=== PATIENT | female | born 1945 | race Caucasian/White ===

== ENCOUNTER 2018-01-23 03:37 | Observation (INO) | payer MEDICARE, OTHER ==
[~2018-01-23] VITALS: Ht 160 cm; Wt 90.3 kg
[2018-01-23] VITALS (10 sets, daily range): BP systolic 118–145; BP diastolic 78–90; PULSE 74–103; RESP 16–24; TEMP 95.9–97.6; O2SAT 94–99
[~2018-01-23 03:37] MED LIST: METO50CR PO; WARF-60 PO
[2018-01-23] MEDS ORDERED: WARF-23 PO (04:06)
[2018-01-23] MEDS ORDERED: WARF-21 PO (04:06)
[2018-01-23] MEDS ORDERED: METO1TAB9 PO (04:06)
[2018-01-23] MEDS ORDERED: SODIUM CHLORIDE 0.9% FLUSH 10 ML FLUSH IVF PRN (04:15)
[2018-01-23] MEDS ORDERED: methylPREDNISolone SOD SUCC 125 MG/2 ML VIAL IV PUSH ONE (04:15)
[2018-01-23] MEDS: RESP: ALBUTEROL 2.5 MG/IPRATROPIUM 0.5 MG NEB (SCH) INH ×2 (04:16→04:17)
--- NOTE | 2018-01-23 04:23 | PD ---
HPI Chief Complaint: Respiratory Symptoms Time Seen by Provider: 03:57 Travel History International Travel<30 days: No Contact w/Intl Traveler<30days: No Traveled to known affect area: No History of Present Illness HPI The patient is a 72-year-old female who complains of a nonproductive cough for 7 days. The cough is persistent. She denies any fever, nausea or vomiting. She has never smoked. She was exposed to asbestos, her father of asbestosis and, when she did the laundry, her father's clothes were covered with asbestos dust. She is slightly short of breath. The patient has right sided sharp, pleuritic chest pain which is a 4/10. She has a history of chronic atrial fibrillation. PFSH Past Medical History Hx Anticoagulant Therapy: Yes (COUMADIN) Arthritis: No Asthma: No Atrial Fibrillation: Yes Autoimmune Disease: No Blood Disorders: No Anxiety: No Depression: No Heart Rhythm Problems: Yes (ATRIAL FIB) Cancer: Yes ( lung, ovarian, kidney) Cardiovascular Problems: Yes (A-FIB) High Cholesterol: Yes Chemotherapy: Yes (1989) Chest Pain: No Congestive Heart Failure: No COPD: No Cerebrovascular Accident: Yes Diabetes: No Dialysis: Yes (PERITONEAL ) Diminished Hearing: No Endocrine: No Gastrointestinal Disorders: Yes GERD: No Glaucoma: No Genitourinary: Yes Headaches: Yes Hepatitis: No Hiatal Hernia: No Hypertension: Yes Immune Disorder: No Implanted Vascular Access Dvce: No Kidney Stones: No Musculoskeletal: Yes (FIBROMYALGIA) Neurologic: Yes Psychiatric: No Reproductive: Yes (ovarian cancer, complete hysto) Respiratory: Yes (left lung cancer) Migraines: No Myocardial Infarction: No Radiation Therapy: Yes Renal Failure: Yes Seizures: Yes (2 IN MAY 2010) Sickle Cell Disease: No Sleep Apnea: No Thyroid Disease: No Ulcer: No ?: Not Menopausal: Yes Past Surgical History Abdominal Surgery: Yes (APPENDECTOMY) AICD: No Appendectomy: Yes Arteriovenous Shunt: No Cardiac Surgery: No Section: Yes (x2) Cholecystectomy: No Ear Surgery: No Endocrine Surgery: Yes (left adrenal and left kidney removal) Eye Surgery: Yes (LASER SURGER- TORN RETINA) Genitourinary Surgery: No Gynecologic Surgery: Yes (HYSTERECTOMY, 2 C SECTIONS) Hysterectomy: Yes Insulin Pump: No Joint Replacement: No Neurologic Surgery: No Oral Surgery: No Pacemaker: No Thoracic Surgery: Yes (2/3 LEFT LUNG REMOVED) Other Surgery: Yes Social History Alcohol Use: No Tobacco Use: No Substance Use: No Allergies-Medications (Allergen,Severity, Reaction): Coded Allergies: latex (Verified Allergy, Severe, Rash, 01/23/18) phenytoin (Verified Allergy, Severe, itching, 01/23/18) sevelamer (Verified Allergy, Severe, RASH, 01/23/18) Reported Meds & Prescriptions Reported Meds & Active Scripts Active Reported Warfarin 5 Mg Tab 5 Mg PO DIRECTED Warfarin 7.5 Mg Tab 7.5 Mg PO DIRECTED Metoprolol Succinate ER 24 HR (Metoprolol Succinate) 50 Mg Tab 50 Mg PO BID Review of Systems Except as stated in HPI: all other systems reviewed are Neg Physical Exam Narrative GENERAL: The patient is alert, oriented 3 in slight respiratory distress. Her vital signs show respirations of 24, blood pressure 133/87 and oximetry 94% but the rest of the vital signs are normal. SKIN: Focused skin assessment warm/dry. HEAD: Atraumatic. Normocephalic. EYES: Pupils equal and round. No scleral icterus. No injection or drainage. ENT: No nasal bleeding or discharge. Mucous membranes pink and moist. NECK: Trachea midline. No JVD. CARDIOVASCULAR: Regular rate and rhythm. No murmur appreciated. RESPIRATORY: No accessory muscle use. There are rhonchi and rare wheezes on expiration present heard bilaterally.. Breath sounds equal bilaterally. GASTROINTESTINAL: Abdomen soft, non-tender, nondistended. Hepatic and splenic margins not palpable. MUSCULOSKELETAL: No obvious deformities. No clubbing. No cyanosis. No edema. NEUROLOGICAL: Awake and alert. No obvious cranial nerve deficits. Motor grossly within normal limits. Normal speech. PSYCHIATRIC: Appropriate mood and affect; insight and judgment normal. Data Data Last Documented VS Vital Signs Date Time Temp Pulse Resp B/P (MAP) Pulse Ox O2 Delivery O2 Flow Rate FiO2 01/23/18 05:37 74 20 136/79 (98) 95 Room Air 01/23/18 03:44 97.6 Orders Orders Electrocardiogram (01/23/18 04:05) Complete Blood Count With Diff (01/23/18 04:05) Comprehensive Metabolic Panel (01/23/18 04:05) Influenzae A/B Antigen (01/23/18 04:05) Arterial Blood Gas (Abg) (01/23/18 04:05) Sodium Chloride 0.9% Flush (Ns Flush) (01/23/18 04:15) Chest, Pa & Lat (01/23/18 04:05) B-Type Natriuretic Peptide (01/23/18 04:08) Methylprednisolone So Succ Inj (Solumedr (01/23/18 04:15) Albuterol-Ipratropium Neb (Duoneb Neb) (01/23/18 04:15) Prothrombin Time / Inr (Pt) (01/23/18 04:24) Guaifen-Cod 200-20 Mg/10ml Liq (Robituss (01/23/18 05:30) Labs Laboratory Tests Test 01/23/18 04:00 01/23/18 04:22 White Blood Count 7.3 TH/MM3 Red Blood Count 5.21 MIL/MM3 Hemoglobin 14.7 GM/DL Hematocrit 44.4 % Mean Corpuscular Volume 85.3 FL Mean Corpuscular Hemoglobin 28.2 PG Mean Corpuscular Hemoglobin Concent 33.0 % Red Cell Distribution Width 13.6 % Platelet Count 280 TH/MM3 Mean Platelet Volume 8.6 FL Neutrophils (%) (Auto) 55.4 % Lymphocytes (%) (Auto) 21.5 % Monocytes (%) (Auto) 17.6 % Eosinophils (%) (Auto) 3.2 % Basophils (%) (Auto) 2.3 % Neutrophils # (Auto) 4.0 TH/MM3 Lymphocytes # (Auto) 1.6 TH/MM3 Monocytes # (Auto) 1.3 TH/MM3 Eosinophils # (Auto) 0.2 TH/MM3 Basophils # (Auto) 0.2 TH/MM3 CBC Comment DIFF FINAL Differential Comment Prothrombin Time 19.7 SEC Prothromb Time International Ratio 1.9 RATIO Blood Urea Nitrogen 41 MG/DL Creatinine 2.70 MG/DL Random Glucose 99 MG/DL Total Protein 7.9 GM/DL Albumin 3.2 GM/DL Calcium Level 9.2 MG/DL Alkaline Phosphatase 81 U/L Aspartate Amino Transf (AST/SGOT) 28 U/L Alanine Aminotransferase (ALT/SGPT) 19 U/L Total Bilirubin 0.4 MG/DL Sodium Level 134 MEQ/L Potassium Level 4.7 MEQ/L Chloride Level 104 MEQ/L Carbon Dioxide Level 20.5 MEQ/L Anion Gap 10 MEQ/L Estimat Glomerular Filtration Rate 17 ML/MIN B-Type Natriuretic Peptide 98 PG/ML Blood Gas Puncture Site LT RADIAL Blood Gas Patient Temperature 98.6 Blood Gas HCO3 19 mmol/L Blood Gas Base Excess -6.5 mmol/L Blood Gas Oxygen Saturation 95 % Arterial Blood pH 7.32 Arterial Blood Partial Pressure CO2 38 mmHG Arterial Blood Partial Pressure O2 92 mmHG Arterial Blood Oxygen Content 19.5 Vol % Arterial Blood Carboxyhemoglobin 1.3 % Arterial Blood Methemoglobin 1.3 % Blood Gas Hemoglobin 14.6 G/DL Oxygen Delivery Device ROOM AIR Blood Gas Inspired Oxygen 21 % MDM Medical Decision Making Medical Screen Exam Complete: Yes Emergency Medical Condition: Yes Medical Record Reviewed: Yes Interpretation(s) The complete metabolic profile shows a BUN of 41, creatinine 2.7, GFR of 17 with albumin 3.2 and bicarb 20.5 the anion gap is normal at 10. The blood gases show a metabolic acidosis with pH 7.32, CO2 38, PO2 92 with O2 sat 95%. The influenza A/B antigen is negative for flu a and flu B antigen. The CBC is normal. The EKG shows atrial fibrillation with a rate of [address] elevation or depression. The BNP is normal at 98. The chest x-ray shows no acute disease. Differential Diagnosis Pneumonia, pneumothorax, pleurisy, bronchitis, hypoxemia, pleural effusion, congestive heart failure, electrolyte disorder, asbestosis Narrative Course The patient did get some relief with the DuoNeb treatments. When I go in the room I can hear some wheezing on the other side of the room from this patient. Her oximetry runs 92%. If she breathes faster it will will improve to 94%. The patient has not gotten better and states she is getting worse in the last week. At this 0.23 hour observation with DuoNeb treatments and evaluation possibly by pulmonary may be in order. Diagnosis Primary Impression: Bronchitis Admitting Information Admitting Physician Requests: Observation Willis Wheeler MD Jan 23, 2018 04:23
[2018-01-23 04:41] LABS: BASOPHIL # 0.2 TH/MM3 (0-0.2); BASOPHIL % 2.3 % (0.0-2.0); EOSINOPHIL # 0.2 TH/MM3 (0-0.4); EOSINOPHIL % 3.2 % (0.0-4.0); HEMATOCRIT 44.4 % (35.0-46.0); HEMOGLOBIN 14.7 GM/DL (11.6-15.3); LYMPH % 21.5 % (9.0-44.0); LYMPHOCYTE # 1.6 TH/MM3 (1.0-4.8); MEAN CELL VOLUME 85.3 FL (80.0-100.0); MEAN CORPUSCULAR HEMOGLOBIN 28.2 PG (27.0-34.0); MEAN PLATELET VOLUME 8.6 FL (7.0-11.0); MONO % 17.6 % (0.0-8.0); MONOCYTE # 1.3 TH/MM3 (0-0.9); NEUT % 55.4 % (16.0-70.0); PLATELET COUNT 280 TH/MM3 (150-450); RED BLOOD COUNT 5.21 MIL/MM3 (4.00-5.30); RED CELL DISTRIBUTION WIDTH 13.6 % (11.6-17.2); WHITE BLOOD COUNT 7.3 TH/MM3 (4.0-11.0)
[2018-01-23 04:48] LABS: CHLORIDE 104 MEQ/L (98-107); SODIUM (NA) 134 MEQ/L (136-145)
[2018-01-23 04:51] LABS: CALCIUM 9.2 MG/DL (8.5-10.1); INTERNATIONAL NORMALIZED RATIO 1.9 RATIO; PROTHROMBIN TIME - PATIENT 19.7 SEC (9.8-11.6)
[2018-01-23 04:52] LABS: ALBUMIN 3.2 GM/DL (3.4-5.0); BICARBONATE 20.5 MEQ/L (21.0-32.0); BLOOD UREA NITROGEN 41 MG/DL (7-18); GLUCOSE,RANDOM 99 MG/DL (74-106)
[2018-01-23 04:55] LABS: ALT (GPT) 19 U/L (10-53); AST (GOT) 28 U/L (15-37); GLOMERULAR FILTRATION RATE 17 ML/MIN (>89)
[2018-01-23 04:56] LABS: TOTAL BILIRUBIN ADULT 0.4 MG/DL (0.2-1.0); TOTAL PROTEIN 7.9 GM/DL (6.4-8.2)
[2018-01-23 04:58] LABS: ALKALINE PHOSPHATASE 81 U/L (45-117)
[2018-01-23] MEDS ORDERED: guaiFENesin/CODEINE SYRUP 200 MG/20 MG/10 ML CUP PO ONE (05:30)
--- NOTE | 2018-01-23 06:08 | RADRPT ---
EXAM DATE/TIME: 01/23/2018 04:16 [facility] COMPARISON: CHEST SINGLE AP, August 10, 2011, 18:31. CHEST PA & LAT, June 08, 2010, 16:57. INDICATIONS : Cough and short of breath. MEDICAL HISTORY : None. SURGICAL HISTORY : Left upper lobectomy. ENCOUNTER: Initial ACUITY: 1 day PAIN SCORE: 0/10 LOCATION: Bilateral chest FINDINGS: PA and lateral views of the chest demonstrate the lungs to be symmetrically aerated without evidence of mass, infiltrate or effusion. The cardiomediastinal contours are unremarkable. Cardiomegaly. Oss eous structures are intact. CONCLUSION: No acute disease. Brendan López MD on January 23, 2018 at 6:06 Board Certified Radiologist. This report was verified electronically.
[2018-01-23] MEDS ORDERED: NALOXONE HCL 0.4 MG/ML AMP IV PUSH PRN (06:15)
[2018-01-23] MEDS ORDERED: ACETAMINOPHEN 325 MG TAB PO PRN (06:15)
[2018-01-23] MEDS ORDERED: SENNOSIDES 8.6 MG TAB PO PRN (06:15)
[2018-01-23] MEDS ORDERED: BISACODYL 10 MG SUPP RECTAL PRN (06:15)
[2018-01-23] MEDS ORDERED: RESP: ALBUTEROL 2.5 MG/IPRATROPIUM 0.5 MG NEB (PRN) NEB (06:15)
[2018-01-23] MEDS ORDERED: LACTULOSE SYRUP 20 GM/30 ML CUP PO PRN (06:15)
[2018-01-23] MEDS ORDERED: ONDANSETRON HCL 4 MG/2 ML VIAL IVP PRN (06:15)
[2018-01-23] MEDS ORDERED: SODIUM CHLORIDE 0.9% FLUSH 10 ML FLUSH IV FLUSH PRN (06:15)
[2018-01-23] MEDS ORDERED: MAGNESIUM HYDROXIDE SUSP 30 ML CUP PO PRN (06:15)
[2018-01-23] MEDS ORDERED: HEPARIN SODIUM - SQ 10,000 UNITS/ML VIAL SQ SCH (06:15)
[2018-01-23] MEDS: HEPARIN SODIUM - SQ 10,000 UNITS/ML VIAL SQ SCH ×2 (07:54→20:38)
[2018-01-23] MEDS: SODIUM CHLORIDE 0.9% FLUSH 10 ML FLUSH IV FLUSH SCH ×2 (09:00→20:38)
[2018-01-23] MEDS: DOCUSATE SODIUM 50 MG/SENNA 8.6 MG TAB PO SCH ×2 (09:00→20:37)
--- NOTE | 2018-01-23 09:58 | HHI.HP ---
HPI Service [facility] Primary Care Physician Waqas Johnson MD Admission Diagnosis Bronchitis, chronic atrial fibrillation Diagnoses: Chief Complaint: Shortness of breath Travel History International Travel<30 Days: No Contact w/Intl Traveler <30 Da: No Traveled to Known Affected Are: No History of Present Illness 72-year-old white female admitted for shortness of breath Patient was in her usual state of health until about 5 days ago when she began experiencing a sore throat followed by a cough followed by progressive shortness of breath. Patient reports that her shortness of breath became persistent, no alleviating or exacerbating factors. Denies any fevers or chills. Denies any nausea vomiting. Reports chest pain only with coughing and deep breathing. Was originally going to go to her primary care doctor today but felt too poor to do so therefore came to the emergency room. Emergency room she had a chest x-ray done which I independently reviewed which shows no acute infiltrates or disease. Blood work showed an acute on chronic kidney injury. Social history is remarkable for no smoking. Past medical history significant for stage IV kidney disease and A. fib. Family history significant for father having asbestosis, mesothelioma, throat cancer, mother having diabetes. Review of Systems Except as stated in HPI: all other systems reviewed are Neg Past Family Social History Allergies: Coded Allergies: latex (Verified Allergy, Severe, Rash, 01/23/18) phenytoin (Verified Allergy, Severe, itching, 01/23/18) sevelamer (Verified Allergy, Severe, RASH, 01/23/18) Physical Exam Vital Signs Vital Signs Date Time Temp Pulse Resp B/P (MAP) Pulse Ox O2 Delivery O2 Flow Rate FiO2 01/23/18 09:00 96.2 90 20 140/90 (107) 97 01/23/18 08:24 01/23/18 07:19 20 95 Nasal Cannula 2.00 01/23/18 07:09 83 20 118/78 (91) 95 Nasal Cannula 2.00 01/23/18 06:20 97 21 01/23/18 05:37 74 20 136/79 (98) 95 Room Air 01/23/18 04:08 69 22 97 Room Air 01/23/18 03:44 97.6 77 24 133/87 (102 94 Physical Exam VS: afebrile GENERAL: Lying in bed sleeping comfortably, easily woken, no acute distress SKIN: Warm and dry. EYES: No scleral icterus. No injection or drainage. ENT: No nasal bleeding or discharge. Mucous membranes pink and moist. Slightly hyperemic oropharynx CARDIOVASCULAR: Regular rate and rhythm. no murmurs RESPIRATORY: No accessory muscle use. Diffuse scattered rhonchi and rails with no wheezing, minimally labored breathing, has a very audible wet cough with no productive sputum just yet GASTROINTESTINAL: Abdomen soft, non-tender, nondistended. Extremities: No clubbing, cyanosis, or edema. No obvious deformities. MUSCULOSKELETAL: adequate muscle bulk and tone for age and habitus NEUROLOGICAL: Awake and alert. No obvious cranial nerve deficits. No facial droop nor slurred speech noted. PSYCHIATRIC: Appropriate mood and affect; insight and judgment normal. Laboratory Laboratory Tests Test 01/23/18 04:00 01/23/18 04:22 White Blood Count 7.3 Red Blood Count 5.21 Hemoglobin 14.7 Hematocrit 44.4 Mean Corpuscular Volume 85.3 Mean Corpuscular Hemoglobin 28.2 Mean Corpuscular Hemoglobin Concent 33.0 Red Cell Distribution Width 13.6 Platelet Count 280 Mean Platelet Volume 8.6 Neutrophils (%) (Auto) 55.4 Lymphocytes (%) (Auto) 21.5 Monocytes (%) (Auto) 17.6 Eosinophils (%) (Auto) 3.2 Basophils (%) (Auto) 2.3 Neutrophils # (Auto) 4.0 Lymphocytes # (Auto) 1.6 Monocytes # (Auto) 1.3 Eosinophils # (Auto) 0.2 Basophils # (Auto) 0.2 CBC Comment DIFF FINAL Differential Comment Prothrombin Time 19.7 Prothromb Time International Ratio 1.9 Blood Urea Nitrogen 41 Creatinine 2.70 Random Glucose 99 Total Protein 7.9 Albumin 3.2 Calcium Level 9.2 Alkaline Phosphatase 81 Aspartate Amino Transf (AST/SGOT) 28 Alanine Aminotransferase (ALT/SGPT) 19 Total Bilirubin 0.4 Sodium Level 134 Potassium Level 4.7 Chloride Level 104 Carbon Dioxide Level 20.5 Anion Gap 10 Estimat Glomerular Filtration Rate 17 B-Type Natriuretic Peptide 98 Blood Gas Puncture Site LT RADIAL Blood Gas Patient Temperature 98.6 Blood Gas HCO3 19 Blood Gas Base Excess -6.5 Blood Gas Oxygen Saturation 95 Arterial Blood pH 7.32 Arterial Blood Partial Pressure CO2 38 Arterial Blood Partial Pressure O2 92 Arterial Blood Oxygen Content 19.5 Arterial Blood Carboxyhemoglobin 1.3 Arterial Blood Methemoglobin 1.3 Blood Gas Hemoglobin 14.6 Oxygen Delivery Device ROOM AIR Blood Gas Inspired Oxygen 21 Date/Time Source Procedure Growth Status 01/23/18 04:00 Nasal Washing Influenza Types A,B Antigen (MANDY) - Final NEGATIVE FOR FLU A AND B ANTIGEN.... Complete Result Diagram: 01/23/1839901/23/18399 Caprini VTE Risk Assessment Caprini VTE Risk Assessment: Mod/High Risk (score >= 2) Caprini Risk Assessment Model Point Value = 1 Point Value = 2 Point Value = 3 Point Value = 5 Age 41-60 Minor surgery BMI > 25 kg/m2 Swollen legs Varicose veins or History of unexplained or recurrent spontaneous Oral contraceptives or hormone replacement Sepsis (< 1 month) Serious lung disease, including pneumonia (< 1 month) Abnormal pulmonary function Acute myocardial infarction Congestive heart failure (< 1 month) History of inflammatory bowel disease Medical patient at bed rest Age 61-74 Arthroscopic surgery Major open surgery (> 45 min) Laparoscopic surgery (> 45 min) Malignancy Confined to bed (> 72 hours) Immobilizing plaster cast Central venous access Age >= 75 History of VTE Family history of VTE Factor V Leiden Prothrombin [id number] Lupus anticoagulant Anticardiolipin antibodies Elevated serum homocysteine Heparin-induced thrombocytopenia Other congenital or acquired thrombophilia Stroke (< 1 month) Elective arthroplasty Hip, pelvis, or leg fracture Acute spinal cord injury (< 1 month) Prophylaxis Regimen Total Risk Factor Score Risk Level Prophylaxis Regimen 0-1 Low Early ambulation 2 Moderate Order ONE of the following: *Sequential Compression Device (SCD) *Heparin 5000 units SQ BID 3-4 Higher Order ONE of the following medications: *Heparin 5000 units SQ TID *Enoxaparin/Lovenox 40 mg SQ daily (WT < 150 kg, CrCl > 30 mL/min) *Enoxaparin/Lovenox 30 mg SQ daily (WT < 150 kg, CrCl > 10-29 mL/min) *Enoxaparin/Lovenox 30 mg SQ BID (WT < 150 kg, CrCl > 30 mL/min) AND/OR *Sequential Compression Device (SCD) 5 or more Highest Order ONE of the following medications: *Heparin 5000 units SQ TID (Preferred with Epidurals) *Enoxaparin/Lovenox 40 mg SQ daily (WT < 150 kg, CrCl > 30 mL/min) *Enoxaparin/Lovenox 30 mg SQ daily (WT < 150 kg, CrCl > 10-29 mL/min) *Enoxaparin/Lovenox 30 mg SQ BID (WT < 150 kg, CrCl > 30 mL/min) AND *Sequential Compression Device (SCD) Assessment and Plan Assessment and Plan 72-year-old white female admitted for shortness of breath Shortness of breath -Acute bronchitis likely, flu swab negative -Given steroids in the ER, continue DuoNeb's and start azithromycin Acute on CKD -IV fluids, BMP in a.m. Chronic A. fib -Resume home warfarin and metoprolol warfarin Jordy Espinoza MD Jan 23, 2018 09:58
[2018-01-23] MEDS: AZITHROMYCIN INJ 500 MG in SODIUM CHLOR 0.9% 250 ML INJ 250 ML IV SCH ×2 (10:00→11:20)
[2018-01-23] MEDS ORDERED: RESP: ACETYLCYSTEINE 10% 10 ML NEB NEB PRN (10:00)
[2018-01-23] MEDS: METOPROLOL SUCCINATE 50 MG EXTENDED RELEASE TAB PO SCH ×2 (11:18→20:37)
[2018-01-23] MEDS: SODIUM CHLOR 0.9% 1000 ML INJ 1,000 ML IV SCH ×2 (11:19→17:03)
[2018-01-23] MEDS: SODIUM CHLORID 0.9% 500 ML INJ 500 ML IV ONE ×2 (11:19→17:03)
[2018-01-23] MEDS: RESP: ALBUTEROL 2.5 MG/IPRATROPIUM 0.5 MG NEB (SCH) NEB ×2 (14:22→20:09)
[2018-01-23] MEDS: WARFARIN SOD 5 MG TAB PO SCH (15:34)
--- NOTE | 2018-01-23 21:25 | EKG ---
Date Performed: 01/23/2018 Time Performed: 04:15:09 PTAGE: 72 years EKG: ATRIAL FIBRILLATION Compared to previous tracing, atrial fibrillation has replaced Sinus rh [facility] ABNORMAL RHYTHM ECG PREVIOUS TRACING : 04/24/2012 08.02 DOCTOR: Figueroa Wilson Interpretating Date/Time 01/23/2018 21:23:43
[2018-01-24] VITALS (8 sets, daily range): BP systolic 99–152; BP diastolic 65–95; PULSE 84–112; RESP 17–20; TEMP 96–98; O2SAT 93–98
[2018-01-24 06:39] LABS: BICARBONATE 18.7 MEQ/L (21.0-32.0)
[2018-01-24 06:43] LABS: AUTOMATED NEUTROPHIL # 9.6 TH/MM3 (1.8-7.7); BASOPHIL % 0.1 % (0.0-2.0); HEMATOCRIT 38.7 % (35.0-46.0); HEMOGLOBIN 12.8 GM/DL (11.6-15.3); LYMPH % 8.4 % (9.0-44.0); LYMPHOCYTE # 0.9 TH/MM3 (1.0-4.8); MEAN CELL VOLUME 85.5 FL (80.0-100.0); MEAN CORPUSCULAR HEMOGLOBIN 28.3 PG (27.0-34.0); MEAN CORPUSCULAR HGB CONC 33.1 % (32.0-36.0); MEAN PLATELET VOLUME 8.5 FL (7.0-11.0); MONO % 5.1 % (0.0-8.0); MONOCYTE # 0.6 TH/MM3 (0-0.9); NEUT % 86.4 % (16.0-70.0); PLATELET COUNT 261 TH/MM3 (150-450); RED BLOOD COUNT 4.53 MIL/MM3 (4.00-5.30); RED CELL DISTRIBUTION WIDTH 13.9 % (11.6-17.2); WHITE BLOOD COUNT 11.1 TH/MM3 (4.0-11.0)
[2018-01-24 06:47] LABS: CREATININE 2.5 MG/DL (0.50-1.00)
[2018-01-24] MEDS: RESP: ALBUTEROL 2.5 MG/IPRATROPIUM 0.5 MG NEB (SCH) NEB ×3 (07:10→19:29)
[2018-01-24] MEDS: HEPARIN SODIUM - SQ 10,000 UNITS/ML VIAL SQ SCH (08:00)
[2018-01-24] MEDS: SODIUM CHLORIDE 0.9% FLUSH 10 ML FLUSH IV FLUSH SCH ×2 (09:00→21:07)
[2018-01-24] MEDS: DOCUSATE SODIUM 50 MG/SENNA 8.6 MG TAB PO SCH ×2 (09:00→21:06)
[2018-01-24] MEDS: METOPROLOL SUCCINATE 50 MG EXTENDED RELEASE TAB PO SCH ×2 (09:39→21:06)
--- NOTE | 2018-01-24 10:58 | HHI.PR ---
Subjective Remarks Respiratory status has improved compared to time of admit. Patient, however, does not feel that she is yet stable in regards to her respiratory status. She still having some coughing and shortness of breath most notable when she is lying flat. Objective Vital Signs Date Time Temp Pulse Resp B/P (MAP) Pulse Ox O2 Delivery O2 Flow Rate FiO2 01/24/18 07:52 96.5 92 17 144/84 (104) 98 01/24/18 07:12 98 Nasal Cannula 2.00 01/24/18 04:00 96.0 100 20 151/85 (107) 93 01/24/18 00:00 96.0 112 20 152/95 (114) 98 01/23/18 20:09 99 Nasal Cannula 2.00 01/23/18 20:00 96.7 103 20 145/87 (106) 98 01/23/18 16:30 95.9 96 16 137/79 (98) 97 01/23/18 14:24 98 Nasal Cannula 2.00 01/23/18 12:30 96.7 102 18 137/86 (103) 97 I/O 01/23/18 01/23/18 01/23/18 01/24/18 01/24/18 01/24/18 07:00 15:00 23:00 07:00 15:00 23:00 Intake Total 740 ml 740 ml 240 ml Balance 740 ml 740 ml 240 ml Intake Oral 740 ml 240 ml 240 ml IV Total 500 ml # Voids 3 3 # Bowel Movements 0 0 Result Diagram: 01/24/18 0505 01/24/18 0505 Objective Remarks GENERAL: NAD, A&Ox3 HEAD: Normocephalic. NECK: Supple, trachea midline. No lymphadenopathy. EYES: No scleral icterus. No injection or drainage. CARDIOVASCULAR: Regular rate and rhythm without murmurs, gallops, or rubs. RESPIRATORY: Breath sounds equal bilaterally. No accessory muscle use. Rhonchi bilaterally. GASTROINTESTINAL: Abdomen soft, non-tender, nondistended. MUSCULOSKELETAL: No cyanosis, or edema. SKIN: Warm and dry. NEURO: No focal neurological deficitis. A/P Problem List: (1) Respiratory distress ICD Code: R06.03 - Acute respiratory distress (2) Bronchitis ICD Code: J40 - Bronchitis, not specified as acute or chronic Status: Acute Assessment and Plan 72-year-old white female admitted for acute respiratory distress related to bronchitis History of lung cancer Chronic pulmonary disease (scar tissue) Acute respiratory distress Bronchitis Continue duo nebs Continue azithromycin Patient does not feel safe for discharge home today Monitor respiratory status through tomorrow Acute on CKD Slight improvement compared to yesterday continue IV hydration Follow BMP Chronic A. fib Continue warfarin Continue metoprolol Follow INR DVT prophylaxis Patient is on warfarin Tyrese Galeas MD Jan 24, 2018 10:58
[2018-01-24] MEDS: AZITHROMYCIN INJ 500 MG in SODIUM CHLOR 0.9% 250 ML INJ 250 ML IV SCH (11:56)
[2018-01-24] MEDS: SODIUM CHLOR 0.9% 1000 ML INJ 1,000 ML IV SCH (11:57)
[2018-01-24] MEDS: WARFARIN SOD 5 MG TAB PO SCH (16:40)
[2018-01-25] VITALS: BP 128/77; PULSE 98; RESP 20; TEMP 96.4; O2SAT 99
[2018-01-25 07:42] LABS: AUTOMATED NEUTROPHIL # 6.8 TH/MM3 (1.8-7.7); BASOPHIL # 0.1 TH/MM3 (0-0.2); BASOPHIL % 0.9 % (0.0-2.0); EOSINOPHIL % 0.2 % (0.0-4.0); HEMATOCRIT 36.3 % (35.0-46.0); HEMOGLOBIN 11.7 GM/DL (11.6-15.3); LYMPH % 15.8 % (9.0-44.0); LYMPHOCYTE # 1.4 TH/MM3 (1.0-4.8); MEAN CELL VOLUME 86.8 FL (80.0-100.0); MEAN CORPUSCULAR HGB CONC 32.2 % (32.0-36.0); MEAN PLATELET VOLUME 8.8 FL (7.0-11.0); MONO % 7.1 % (0.0-8.0); MONOCYTE # 0.6 TH/MM3 (0-0.9); PLATELET COUNT 246 TH/MM3 (150-450); RED BLOOD COUNT 4.18 MIL/MM3 (4.00-5.30); RED CELL DISTRIBUTION WIDTH 13.9 % (11.6-17.2); WHITE BLOOD COUNT 8.9 TH/MM3 (4.0-11.0)
[2018-01-25 07:56] LABS: INTERNATIONAL NORMALIZED RATIO 2.7 RATIO; PROTHROMBIN TIME - PATIENT 27.4 SEC (9.8-11.6)
[2018-01-25 08:09] LABS: CALCIUM 8.5 MG/DL (8.5-10.1); CHLORIDE 111 MEQ/L (98-107); SODIUM (NA) 139 MEQ/L (136-145)
[2018-01-25] MEDS: RESP: ALBUTEROL 2.5 MG/IPRATROPIUM 0.5 MG NEB (SCH) NEB (08:09)
[2018-01-25 08:10] LABS: ALBUMIN 2.6 GM/DL (3.4-5.0); BICARBONATE 19.4 MEQ/L (21.0-32.0); BLOOD UREA NITROGEN 63 MG/DL (7-18); GLUCOSE,RANDOM 81 MG/DL (74-106)
[2018-01-25 08:26] VITALS: O2SAT 98
[2018-01-25 08:41] LABS: ALKALINE PHOSPHATASE 57 U/L (45-117); ALT (GPT) 15 U/L (10-53); AST (GOT) 15 U/L (15-37); GLOMERULAR FILTRATION RATE 18 ML/MIN (>89); TOTAL BILIRUBIN ADULT 0.3 MG/DL (0.2-1.0); TOTAL PROTEIN 6.1 GM/DL (6.4-8.2)
[2018-01-25] MEDS ORDERED: cefTRIAXone 1,000 MG/NS 100 ML IV SCH ×2 (09:00)
[2018-01-25] MEDS: SODIUM CHLORIDE 0.9% FLUSH 10 ML FLUSH IV FLUSH SCH (09:00)
[2018-01-25] MEDS: SODIUM CHLOR 0.9% 1000 ML INJ 1,000 ML IV SCH (09:38)
[2018-01-25] MEDS: AZITHROMYCIN INJ 500 MG in SODIUM CHLOR 0.9% 250 ML INJ 250 ML IV SCH (11:09)
[2018-01-25] MEDS: METOPROLOL SUCCINATE 50 MG EXTENDED RELEASE TAB PO SCH (11:12)
[2018-01-25] MEDS: DOCUSATE SODIUM 50 MG/SENNA 8.6 MG TAB PO SCH (11:12)
[2018-01-25] MEDS ORDERED: AZIT250T3 PO (11:21)
[2018-01-25] MEDS ORDERED: CEFD300C PO (11:21)
--- NOTE | 2018-01-25 11:21 | HHI.DCPOC ---
Discharge Care Plan Diagnosis: (1) Bronchitis Additional Problems Follow-up with your primary care provider to recheck your warfarin levels in 3- 5 days. Goals to Promote Your Health * To prevent worsening of your condition and complications * To maintain your health at the optimal level Directions to Meet Your Goals Take your medications as prescribed Follow your dietary instruction Follow activity as directed Keep your appointments as scheduled Take your immunizations and boosters as scheduled If your symptoms worsen call your PCP, if no PCP go to Urgent Care Center or Emergency Room Smoking is Dangerous to Your Health. Avoid second hand smoke Call the 24-hour hour crisis hotline for domestic abuse at Jordy Espinoza MD Jan 25, 2018 11:21
--- NOTE | 2018-01-25 11:24 | HHI.DS ---
Discharge Summary Admission Date Jan 23, 2018 at 06:21 Discharge Date: Jan 25, 2018 Admitting Diagnosis Bronchitis, chronic atrial fibrillation (1) Bronchitis ICD Code: J40 - Bronchitis, not specified as acute or chronic Status: Acute Procedures none Brief History - From Admission 72-year-old white female admitted for shortness of breath Patient was in her usual state of health until about 5 days ago when she began experiencing a sore throat followed by a cough followed by progressive shortness of breath. Patient reports that her shortness of breath became persistent, no alleviating or exacerbating factors. Denies any fevers or chills. Denies any nausea vomiting. Reports chest pain only with coughing and deep breathing. Was originally going to go to her primary care doctor today but felt too poor to do so therefore came to the emergency room. Emergency room she had a chest x-ray done which I independently reviewed which shows no acute infiltrates or disease. Blood work showed an acute on chronic kidney injury. Social history is remarkable for no smoking. Past medical history significant for stage IV kidney disease and A. fib. Family history significant for father having asbestosis, mesothelioma, throat cancer, mother having diabetes. CBC/BMP: 01/25/18 0608 01/25/18 0608 Significant Findings Laboratory Tests Test 01/23/18 04:00 01/23/18 04:22 01/24/18 05:05 01/25/18 06:08 Monocytes (%) (Auto) 17.6 % (0.0-8.0) Basophils (%) (Auto) 2.3 % (0.0-2.0) Monocytes # (Auto) 1.3 TH/MM3 (0-0.9) Prothrombin Time 19.7 SEC (9.8-11.6) 27.4 SEC (9.8-11.6) Blood Urea Nitrogen 41 MG/DL (7-18) 52 MG/DL (7-18) 63 MG/DL (7-18) Creatinine 2.70 MG/DL (0.50-1.00) 2.50 MG/DL (0.50-1.00) 2.60 MG/DL (0.50-1.00) Albumin 3.2 GM/DL (3.4-5.0) 2.6 GM/DL (3.4-5.0) Sodium Level 134 MEQ/L (136-145) 132 MEQ/L (136-145) Carbon Dioxide Level 20.5 MEQ/L (21.0-32.0) 18.7 MEQ/L (21.0-32.0) 19.4 MEQ/L (21.0-32.0) Estimat Glomerular Filtration Rate 17 ML/MIN (>89) 19 ML/MIN (>89) 18 ML/MIN (>89) Blood Gas HCO3 19 mmol/L (22-26) Blood Gas Base Excess -6.5 mmol/L (-2-2) Arterial Blood pH 7.32 (7.380-7.420) White Blood Count 11.1 TH/MM3 (4.0-11.0) Neutrophils (%) (Auto) 86.4 % (16.0-70.0) 76.0 % (16.0-70.0) Lymphocytes (%) (Auto) 8.4 % (9.0-44.0) Neutrophils # (Auto) 9.6 TH/MM3 (1.8-7.7) Lymphocytes # (Auto) 0.9 TH/MM3 (1.0-4.8) Random Glucose 134 MG/DL (74-106) Total Protein 6.1 GM/DL (6.4-8.2) Chloride Level 111 MEQ/L (98-107) Imaging Last Impressions Chest X-Ray 01/23/18 0405 Signed Impressions: Service Date/Time: January 04:16 - CONCLUSION: No acute disease. Brendan López MD Hospital Course Patient was admitted, started on antibiotics and oxygen. Her respiratory status stabilized over 2 days. patient's dyspnea eventually resolve. Patient has met maximal benefit from hospitalization and is clinically stable for discharge. Pt Condition on Discharge: Stable Discharge Disposition: Discharge Home Discharge Time: <= 30 minutes Discharge Instructions DIET: Follow Instructions for: Coumadin (Warfarin) Diet Activities you can perform: Regular-No Restrictions Follow up Referrals: PCP Follow-up - 3-5 Days New Medications: Azithromycin (Azithromycin) 250 Mg Tab 250 MG PO DAILY for Infection, #2 TAB 0 Refills Cefdinir (Cefdinir) 300 Mg Cap 300 MG PO EVERY OTHER DAY for Infection, #5 CAP 0 Refills Continued Medications: Metoprolol Succinate ER 24 HR (Metoprolol Succinate ER 24 HR) 50 Mg Tab 50 MG PO BID, #30 TAB 0 Refills Warfarin (Warfarin) 7.5 Mg Tab 7.5 MG PO DIRECTED for Blood Clot Prevention, #30 TAB 0 Refills Warfarin (Warfarin) 5 Mg Tab 5 MG PO DIRECTED for Blood Clot Prevention, #30 TAB 0 Refills Jordy Espinoza MD Jan 25, 2018 11:23
[2018-01-25 12:00] VITALS: BP 125/71; PULSE 94; RESP 15; TEMP 96.5; O2SAT 95
== END 2018-01-25 16:19 | disposition home or self-care (01) ==
LOC: PHED 03:37 → PHEDA 06:21 → PH3A 08:14
PROVIDERS: ADMIT Hospitalist; ATTEND Hospitalist
DX: J40 Bronchitis, not specified as acute or chronic (principal); I12.9 Hypertensive chronic kidney disease with stage 1 through stage 4 chronic kidney disease, or unspecified chronic kidney disease; N17.9 Acute kidney failure, unspecified; N18.9 Chronic kidney disease, unspecified; I48.2 Chronic atrial fibrillation; M79.7 Fibromyalgia; E78.00 Pure hypercholesterolemia, unspecified; Z79.01 Long term (current) use of anticoagulants; Z77.090 Contact with and (suspected) exposure to asbestos; Z85.118 Personal history of other malignant neoplasm of bronchus and lung; Z85.43 Personal history of malignant neoplasm of ovary; Z86.73 Personal history of transient ischemic attack (TIA), and cerebral infarction without residual deficits; Z83.3 Family history of diabetes mellitus; Z80.8 Family history of malignant neoplasm of other organs or systems
CPT/HCPCS: 36600; 71046; 80048; 80053; 82805; 83880; 85025; 85610; 87804; 93005; 94640; 94664; 96361; 96365; 96372; 96375; 99285; G0378; J0456; J0696; J1644; J2405; J2930; J7030; J7040; J7050